=== PATIENT | male | born 1955 | race Caucasian/White ===

== ENCOUNTER 2019-05-17 08:33 | Emergency (ER) | payer SELFPAY ==
--- NOTE | 2019-05-17 10:19 | RADIOLOGY REPORT (SQ) ---
EXAM DESCRIPTION: KNEE RIGHT 4 VIEWS COMPLETED DATE/TIME: 05/17/2019 10:06 am REASON FOR STUDY: pain, unable to ambulate COMPARISON: None. NUMBER OF VIEWS: Four views. TECHNIQUE: AP, lateral, and both oblique radiographic images acquired of the right knee. LIMITATIONS: None. FINDINGS: MINERALIZATION: Normal. BONES: No acute fracture or dislocation. No worrisome bone lesions. Mild medial joint space narrowing . No significant osteophytes. JOINT: Possible small suprapatellar effusion. No chondrocalcinosis. OTHER: No other significant finding. IMPRESSION: MILD MEDIAL JOINT SPACE NARROWING. POSSIBLE SMALL JOINT EFFUSION. NO OTHER SIGNIFICANT FINDINGS. TECHNICAL DOCUMENTATION: JOB ID: [id number] [email or web address]- All Rights Reserved Reading location - IP/workstation name: [email or web address]
--- NOTE | 2019-05-17 11:08 | ER Document Report ---
ED General - General Chief Complaint: Knee Pain Stated Complaint: KNEE PAIN Time Seen by Provider: 05/17/19 10:24 Notes: 63-year-old male presents emergency department complaining of right knee pain. Patient states that he has been having some pain in his right knee for the past week but is been improving with ice and compression sock however yesterday he stood up and then fell because his right knee gave out on him. States that since then he has not been able to bear weight on that knee due to pain and feeling like it is going to give out. Complains of a small amount of swelling. Otherwise notices no abnormalities. Patient has never had any symptoms like this before. Has never had an injury to this knee before. Patient does have a history of osteoarthritis and many other areas of his body. - Related Data Allergies/Adverse Reactions: No Known Allergies Allergy (Verified 05/17/19 09:45) Past Medical History - General Information source: Patient - Social History Smoking Status: Current Every Day Smoker Frequency of alcohol use: Social Drug Abuse: None Family History: Reviewed & Not Pertinent Patient has suicidal ideation: No Patient has homicidal ideation: No Review of Systems - Review of Systems Constitutional: No symptoms reported Cardiovascular: No symptoms reported Respiratory: No symptoms reported Gastrointestinal: No symptoms reported Genitourinary: No symptoms reported Musculoskeletal: See HPI Skin: No symptoms reported Hematologic/Lymphatic: denies: Easy bleeding, Easy bruising Neurological/Psychological: denies: Numbness, Tingling Physical Exam - Vital signs Vitals: Temp Pulse Resp BP Pulse Ox 98.3 F 64 17 194/93 H 98 05/17/19 08:43 05/17/19 08:43 05/17/19 08:43 05/17/19 08:43 05/17/19 08:43 Interpretation: Hypertensive - Notes Notes: GENERAL: Alert, interacts well. No acute distress. HEAD: Normocephalic, atraumatic EYES: Pupils equal, round and reactive to light, extraocular movements intact. ENT: Oral mucosa moist, tongue midline. NECK: Full range of motion, supple, trachea midline. LUNGS: no respiratory distress. EXTREMITIES: Able to move right leg spontaneously however complains of pain with extreme flexion of the right knee. No difficulty moving the hip or the ankle. There is a moderate suprapatellar effusion on the right, there is ligamentous laxity of the lateral collateral ligament, no laxity medially, small amount of tenderness to palpation laterally, negative anterior and posterior drawer test, patella is not ballotable. There is no crepitus. Knee is able to be moved through flexion and extension, there is no weakness, there is no increased warmth. Dorsalis pedis pulses 2/4 bilaterally. No cyanosis. NEUROLOGICAL: Alert and oriented x3, normal speech. PSYCH: Normal mood, normal affect. SKIN: Warm, Dry, normal turgor, no rashes or lesions noted. Course - Re-evaluation Re-evalutation: 05/17/19 11:05 Knee X-Ray 05/17/19 00:00 IMPRESSION: MILD MEDIAL JOINT SPACE NARROWING. POSSIBLE SMALL JOINT EFFUSION. NO OTHER SIGNIFICANT FINDINGS. Exam consistent with lateral collateral ligament strain. Placed in knee immobilizer and on crutches, treat with anti-inflammatories and rest, referred to orthopedic surgery for outpatient follow-up. - Vital Signs Vital signs: Temp Pulse Resp BP Pulse Ox 98.3 F 64 17 194/93 H 98 05/17/19 08:43 05/17/19 08:43 05/17/19 08:43 05/17/19 08:43 05/17/19 08:43 Procedures - Immobilization Right knee Pre-Proc Neuro Vasc Exam: Normal Immobilizer type: Knee immobilizer Performed by: DANNIELLE PARKER Post-Proc Neuro Vasc Exam: Normal, Unchanged from pre-exam Alignment checked and good: Yes Discharge - Discharge Clinical Impression: Lateral collateral ligament sprain of knee Qualifiers: Encounter type: initial encounter Laterality: right Qualified Code(s): S83.421A - Sprain of lateral collateral ligament of right knee, initial encounter Condition: Stable Disposition: HOME, SELF-CARE Additional Instructions: Sprained Knee Your sprained knee results from a stretching or tearing of the ligaments which support the joint. This often results from a bending stress -- such as a twisting fall while skiing or a "clip" while playing football. The ligaments will require time and protection to heal adequately. A knee sprain can be quite serious, and should be taken seriously. The usual treatment is splinting of the knee, ice packs, and elevation. P lease use the knee immobilizer and the crutches for the next several days. Please make a follow-up appointment with orthopedic surgery within the next week for reevaluation. They will discuss with you whether or not you need an MRI or any further imaging studies of your knee. They will also discuss with you how long he should wear the knee immobilizer and how long you should remain nonweightbearing. Please use ibuprofen (Motrin or Advil) 600-800 mg every 8 hours as needed for pain. You may also use acetaminophen (Tylenol) 1000 mg every 4-6 hours as needed for pain. Please be aware that many medications contain acetaminophen, do not exceed a total of 1000 mg of acetaminophen every 6 hours. Please return to the emergency department if you develop increasing swelling, increasing pain, any fevers, any numbness or tingling. You also had high blood pressure today. It is possible because it was due to pain or anxiety however it is very important that you have your blood pressure r echecked in 1 week. Prescriptions: Hydrocodone/Acetaminophen [[place] 5-325 mg Tablet] 1 tab PO Q6HP PRN #4 tablet PRN Reason:
[2019-05-17 11:25] VITALS: BP 162/79
== END 2019-05-17 11:37 | disposition home or self-care (01) ==
LOC: ER 08:33
DX: S83.421A Sprain of lateral collateral ligament of right knee, initial encounter (principal); W19.XXXA Unspecified fall, initial encounter; F17.200 Nicotine dependence, unspecified, uncomplicated
CPT/HCPCS: 99283; 73564; L1830